=== PATIENT | female | born 1970 | race Caucasian/White ===

== ENCOUNTER 2017-02-03 16:09 | Inpatient (IN) | payer MEDICARE, MEDICAID ==
[~2017-02-03] VITALS: Ht 162.6 cm; Wt 123.0 kg
[~2017-02-03 16:09] MED LIST: CITA20TA9 PO; FAMO-136 PO; FERS325 PO; LEVO125T4 PO; METF500T4 PO; OLAN10TA3 PO; PROP10 PO; TRIH5TAB2 PO
[2017-02-03] MEDS ORDERED: FLUO-191 PO (16:24)
[2017-02-03] MEDS ORDERED: GABA-533 PO (16:24)
[2017-02-03] MEDS ORDERED: BUPR-93 PO (16:27)
[2017-02-03] MEDS ORDERED: MAGNESIUM HYDROXIDE SUSPENSION 30 ML UDCUP PO PRN (16:45)
[2017-02-03] MEDS ORDERED: MAG HYDROX/AL HYDROX/SIMETH ES 30 ML SUSPENSION UDCUP PO PRN (16:45)
[2017-02-03] MEDS ORDERED: PROMETHAZINE HCL 25 MG TABLET PO PRN (16:45)
[2017-02-03] MEDS ORDERED: HydrOXYzine PAMOATE 50 MG CAPSULE PO PRN (16:45)
[2017-02-03] MEDS ORDERED: OLANZapine 5 MG RAPDIS TABLET PO PRN (16:45)
[2017-02-03] MEDS ORDERED: ACETAMINOPHEN 325 MG TABLET PO PRN (16:45)
[2017-02-03] MEDS ORDERED: GuaiFENesin/D-METHORPHAN [SUGAR-FREE] 200-20MG/10 ML SYRUP UDCUP PO PRN (16:45)
[2017-02-03] MEDS ORDERED: LOPERAMIDE HCL 2 MG CAPSULE PO PRN (16:45)
[2017-02-03] MEDS ORDERED: TUBERCULIN, PURIFIED PROTEIN DERIVATIVE 5 TU/0.1 ML SYG ID ONE (16:45)
[2017-02-03 16:46] VITALS: BP 122/79
[2017-02-03] MEDS: TRIHEXYPHENIDYL HCL 5 MG TABLET PO SCH (17:35)
[2017-02-03] MEDS: PROPRANOLOL HCL 10 MG TABLET PO SCH (17:35)
[2017-02-03] MEDS: THIAMINE HCL 100 MG TABLET PO SCH (17:35)
[2017-02-03 17:37] VITALS: BP 121/78
[2017-02-03 17:37] LABS: GLUCOSE,POINT OF CARE 134 MG/DL (70-110)
[2017-02-03] MEDS: LORazepam 2 MG TABLET PO PRN (17:38)
[2017-02-03] MEDS: OLANZapine 5 MG RAPDIS TABLET PO SCH (20:23)
[2017-02-03] MEDS: ZOLPIDEM TARTRATE 10 MG TABLET PO PRN (20:59)
[2017-02-04 00:05] VITALS: BP 108/75
[2017-02-04] MEDS ORDERED: -PHARMACY VACCINE NOTE- MISC ONE ×2 (03:00)
[2017-02-04 04:50] VITALS: BP 129/78
[2017-02-04] MEDS: LORazepam 2 MG TABLET PO PRN ×3 (04:53→17:53)
[2017-02-04 06:32] LABS: GLUCOSE,POINT OF CARE 119 MG/DL (70-110)
[2017-02-04] MEDS: LEVOTHYROXINE SODIUM 125 MCG TABLET PO SCH (07:06)
[2017-02-04] MEDS: FERROUS SULFATE 325 MG EC TABLET PO SCH ×2 (07:06→16:13)
[2017-02-04 07:43] LABS: BASOPHILS % (AUTO) 0.9 % (0.0-2.0); EOSINOPHILS % (AUTO) 6.2 % (1.0-6.0); HEMATOCRIT 47.7 % (36-46); HEMOGLOBIN 15.7 g/dL (12.0-16.0); LYMPHOCYTES # (AUTO) 1.6 K/uL (1.0-4.8); LYMPHOCYTES % (AUTO) 26.3 % (22.0-44.0); MEAN CORPUSCULAR HEMOGLOBIN 32.2 pg (26.0-34.0); MEAN CORPUSCULAR HGB CONC 32.8 G/dL (31.0-37.0); MEAN CORPUSCULAR VOLUME 98 fL (80-100); MONOCYTES # (AUTO) 0.6 K/uL (0.1-1.0); MONOCYTES % (AUTO) 9.7 % (2.0-9.0); NEUTROPHILS # (AUTO) 3.5 K/uL (1.8-7.7); NEUTROPHILS % (AUTO) 56.9 % (40.0-70.0); PLATELET COUNT (AUTO) 231 K/uL (150-450); RED BLOOD CELL COUNT(AUTO) 4.88 MIL/uL (4.00-5.20); RED CELL DISTRIBUTION WIDTH 13.6 % (11.5-14.5); WHITE BLOOD COUNT (AUTO) 6.2 K/uL (4.5-11.0)
[2017-02-04 08:05] VITALS: BP 123/73
[2017-02-04 08:32] LABS: ALANINE AMINOTRANSFERASE 21 U/L (12-78); ALBUMIN 3.6 g/dL (3.4-5.0); ANION GAP 10 mmol/L (8-16); ASPARTATE AMINOTRANSFERASE 23 U/L (15-37); BILIRUBIN,TOTAL 0.5 mg/dL (0.1-1.0); CALCIUM, TOTAL 9.2 mg/dL (8.8-10.5); CARBON DIOXIDE 28 mmol/L (22-29); CHLORIDE 105 mmol/L (98-107); CHOL/HDL RATIO 3.5 (3.9-5.7); CREATININE 0.84 mg/dL (0.60-1.30); GLOMERULAR FILTR. RATE CALC > 60 mL/min (>60); POTASSIUM 5.9 mmol/L (3.5-5.1); SODIUM SERUM 143 mmol/L (136-145); THYROID STIMULATING HORMONE 2.79 uIU/mL (0.36-3.74); UREA NITROGEN, BLOOD 11 mg/dL (7-18)
[2017-02-04] MEDS: THIAMINE HCL 100 MG TABLET PO SCH ×2 (09:18→16:13)
[2017-02-04] MEDS: FAMOTIDINE 20 MG TABLET PO SCH ×2 (09:18→16:13)
[2017-02-04] MEDS: PROPRANOLOL HCL 10 MG TABLET PO SCH ×3 (09:18→16:13)
[2017-02-04] MEDS: MULTIVITAMINS WITH MINERALS, THERAPEUTIC TABLET PO SCH (09:18)
[2017-02-04] MEDS: TRIHEXYPHENIDYL HCL 5 MG TABLET PO SCH ×2 (09:18→16:13)
[2017-02-04] MEDS: NICOTINE 14 MG/24 HOUR PATCH TD SCH (09:19)
[2017-02-04] MEDS: CITALOPRAM HYDROBROMIDE 20 MG TABLET PO SCH (09:19)
[2017-02-04] MEDS: FOLIC ACID 1 MG TABLET PO SCH (09:19)
[2017-02-04] MEDS ORDERED: ACETAMINOPHEN 325 MG TABLET PO PRN (10:15)
[2017-02-04] MEDS ORDERED: IBUPROFEN 400 MG TABLET PO PRN (10:15)
[2017-02-04] MEDS ORDERED: SODIUM POLYSTYRENE SULFONATE 15 GM/60 ML SUSPENSION BOTTLE PO ONE (10:15)
[2017-02-04 13:20] VITALS: BP 111/70
[2017-02-04 16:06] VITALS: BP 117/79
[2017-02-04 16:40] VITALS: BP 115/80
[2017-02-04 16:41] LABS: GLUCOSE,POINT OF CARE 133 MG/DL (70-110)
[2017-02-04] MEDS ORDERED: FERROUS SULFATE 325 MG EC TABLET PO SCH (17:00)
[2017-02-04] MEDS: OLANZapine 5 MG RAPDIS TABLET PO SCH (20:05)
[2017-02-04] MEDS: ZOLPIDEM TARTRATE 10 MG TABLET PO PRN (20:52)
[2017-02-05 05:03] VITALS: BP 112/76
[2017-02-05] MEDS: MetFORMIN HCL 500 MG TABLET PO SCH (06:00)
[2017-02-05] MEDS: FERROUS SULFATE 325 MG EC TABLET PO SCH ×2 (06:00→16:03)
[2017-02-05] MEDS: LEVOTHYROXINE SODIUM 125 MCG TABLET PO SCH (06:00)
[2017-02-05] MEDS: LORazepam 2 MG TABLET PO PRN ×4 (06:22→22:05)
[2017-02-05 06:27] LABS: GLUCOSE,POINT OF CARE 86 MG/DL (70-110)
[2017-02-05 08:05] VITALS: BP 118/68
[2017-02-05 08:07] LABS: HEMOGLOBIN A1C 5.9 % (4.5-6.2)
[2017-02-05 08:30] LABS: POTASSIUM 5.4 mmol/L (3.5-5.1); THYROID STIMULATING HORMONE 2.66 uIU/mL (0.36-3.74)
[2017-02-05] MEDS ORDERED: SODIUM POLYSTYRENE SULFONATE 15 GM/60 ML SUSPENSION BOTTLE PO ONE (08:45)
[2017-02-05] MEDS: MULTIVITAMINS WITH MINERALS, THERAPEUTIC TABLET PO SCH (09:17)
[2017-02-05] MEDS: THIAMINE HCL 100 MG TABLET PO SCH ×2 (09:17→16:02)
[2017-02-05] MEDS: FOLIC ACID 1 MG TABLET PO SCH (09:17)
[2017-02-05] MEDS: FAMOTIDINE 20 MG TABLET PO SCH ×2 (09:17→16:02)
[2017-02-05] MEDS: TRIHEXYPHENIDYL HCL 5 MG TABLET PO SCH ×2 (09:17→16:02)
[2017-02-05] MEDS: CITALOPRAM HYDROBROMIDE 20 MG TABLET PO SCH (09:17)
[2017-02-05] MEDS: PROPRANOLOL HCL 10 MG TABLET PO SCH ×3 (09:17→16:43)
[2017-02-05] MEDS: NICOTINE 14 MG/24 HOUR PATCH TD SCH (09:18)
[2017-02-05 16:06] LABS: GLUCOSE,POINT OF CARE 80 MG/DL (70-110)
[2017-02-05 16:08] VITALS: BP 119/70
[2017-02-05] MEDS: OLANZapine 5 MG RAPDIS TABLET PO SCH (20:21)
[2017-02-05] MEDS: ZOLPIDEM TARTRATE 10 MG TABLET PO PRN (20:53)
[2017-02-05] MEDS ORDERED: FLUTICASONE PROPIONATE 50 MCG/SPRAY 16 GM NASAL SPRAY NASAL PRN (22:30)
[2017-02-06 03:30] VITALS: BP 115/67
[2017-02-06] MEDS: FERROUS SULFATE 325 MG EC TABLET PO SCH ×2 (06:11→16:18)
[2017-02-06] MEDS: LEVOTHYROXINE SODIUM 125 MCG TABLET PO SCH (06:11)
[2017-02-06] MEDS: MetFORMIN HCL 500 MG TABLET PO SCH (06:11)
[2017-02-06 06:17] LABS: GLUCOSE,POINT OF CARE 107 MG/DL (70-110)
[2017-02-06 08:22] VITALS: BP 112/69
[2017-02-06] MEDS: MULTIVITAMINS WITH MINERALS, THERAPEUTIC TABLET PO SCH (08:36)
[2017-02-06] MEDS: TRIHEXYPHENIDYL HCL 5 MG TABLET PO SCH ×2 (08:36→16:18)
[2017-02-06] MEDS: CITALOPRAM HYDROBROMIDE 20 MG TABLET PO SCH (08:36)
[2017-02-06] MEDS: FOLIC ACID 1 MG TABLET PO SCH (08:36)
[2017-02-06] MEDS: LORazepam 2 MG TABLET PO PRN ×2 (08:36→13:05)
[2017-02-06] MEDS: NICOTINE 14 MG/24 HOUR PATCH TD SCH (08:36)
[2017-02-06] MEDS: FAMOTIDINE 20 MG TABLET PO SCH ×2 (08:36→16:18)
[2017-02-06] MEDS: PROPRANOLOL HCL 10 MG TABLET PO SCH ×3 (08:36→16:18)
[2017-02-06] MEDS: THIAMINE HCL 100 MG TABLET PO SCH ×2 (08:36→16:18)
[2017-02-06] MEDS ORDERED: CITA20TA9 PO (13:09)
== END 2017-02-06 16:15 | disposition home or self-care (01) | DRG 885 ==
LOC: B2X 17:02 → EDSTATUS 17:05 → B2X 02-05 13:59
PROVIDERS: ADMIT Psychiatry & Neurology Psychiatry; ATTEND Psychiatry & Neurology Psychiatry
DX: F25.1 Schizoaffective disorder, depressive type (principal); Z68.42 Body mass index [BMI] 45.0-49.9, adult; E11.9 Type 2 diabetes mellitus without complications; E03.9 Hypothyroidism, unspecified; D64.9 Anemia, unspecified; E66.9 Obesity, unspecified; E78.5 Hyperlipidemia, unspecified; E87.5 Hyperkalemia; F99 Mental disorder, not otherwise specified; F17.210 Nicotine dependence, cigarettes, uncomplicated; I10 Essential (primary) hypertension; K21.9 Gastro-esophageal reflux disease without esophagitis; Z59.9 Problem related to housing and economic circumstances, unspecified; Z65.3 Problems related to other legal circumstances; Z82.49 Family history of ischemic heart disease and other diseases of the circulatory system; Z90.49 Acquired absence of other specified parts of digestive tract; Z83.3 Family history of diabetes mellitus; Z91.19 Patient's noncompliance with other medical treatment and regimen; Z91.5 Personal history of self-harm; Z98.84 Bariatric surgery status; Z98.890 Other specified postprocedural states; Z90.710 Acquired absence of both cervix and uterus; Z79.899 Other long term (current) drug therapy
CPT/HCPCS: 82962; 83036; 84132; 84439; 84443; 86592

== ENCOUNTER 2017-11-12 14:20 | Inpatient (IN) | payer MEDICARE, MEDICAID ==
[~2017-11-12] VITALS: Ht 162.6 cm; Wt 125.6 kg
[~2017-11-12 14:20] MED LIST changes: +FERR-89 PO; -FERS325 PO; -PROP10 PO; +PROP10TA73 PO
[2017-11-12 15:18] VITALS: BP 118/76
[2017-11-12] MEDS ORDERED: ZOLPIDEM TARTRATE 10 MG TABLET PO PRN (16:00)
[2017-11-12 16:20] VITALS: BP 122/76
[2017-11-12] MEDS: BuPROPion HCL XL 150 MG ER TABLET PO SCH (16:35)
[2017-11-12] MEDS: GABAPENTIN 400 MG CAPSULE PO SCH (16:35)
[2017-11-12] MEDS: LORazepam 2 MG TABLET PO PRN (16:35)
[2017-11-12] MEDS ORDERED: INFLUENZA VIRUS VACCINE QVS 2017-18 (3YR+)/PF 60 MCG/0.5 ML SYRINGE IM ONE (16:45)
[2017-11-12 17:08] LABS: GLUCOMETER DEV NAME(LOC) BV2S; GLUCOSE,POINT OF CARE 92 MG/DL (70-110)
[2017-11-12] MEDS: OLANZapine 7.5 MG TABLET PO SCH (20:16)
[2017-11-13 00:58] VITALS: BP 132/71
[2017-11-13] MEDS: LEVOTHYROXINE SODIUM 125 MCG TABLET PO SCH (06:37)
[2017-11-13] MEDS: FERROUS SULFATE 325 MG EC TABLET PO SCH ×2 (06:50→16:40)
[2017-11-13] MEDS: MetFORMIN HCL 500 MG TABLET PO SCH (06:50)
[2017-11-13] MEDS: LORazepam 2 MG TABLET PO PRN ×2 (06:50→11:11)
[2017-11-13] MEDS: GABAPENTIN 400 MG CAPSULE PO SCH ×3 (08:07→16:41)
[2017-11-13] MEDS: FAMOTIDINE 20 MG TABLET PO SCH ×2 (08:07→16:40)
[2017-11-13] MEDS: BuPROPion HCL XL 150 MG ER TABLET PO SCH (08:07)
[2017-11-13] MEDS: FLUoxetine HCL 20 MG CAPSULE PO SCH (08:07)
[2017-11-13 08:18] LABS: EOSINOPHILS % (AUTO) 7.1 % (1.0-6.0); HEMATOCRIT 42.3 % (36-46); HEMOGLOBIN 14.6 g/dL (12.0-16.0); LYMPHOCYTES # (AUTO) 2.1 K/uL (1.0-4.8); LYMPHOCYTES % (AUTO) 37.7 % (22.0-44.0); MEAN CORPUSCULAR HEMOGLOBIN 33.6 pg (26.0-34.0); MEAN CORPUSCULAR HGB CONC 34.6 G/dL (31.0-37.0); MEAN CORPUSCULAR VOLUME 97 fL (80-100); MONOCYTES # (AUTO) 0.5 K/uL (0.1-1.0); MONOCYTES % (AUTO) 8.4 % (2.0-9.0); NEUTROPHILS # (AUTO) 2.5 K/uL (1.8-7.7); NEUTROPHILS % (AUTO) 45.8 % (40.0-70.0); PLATELET COUNT (AUTO) 205 K/uL (150-450); RED BLOOD CELL COUNT(AUTO) 4.35 MIL/uL (4.00-5.20); RED CELL DISTRIBUTION WIDTH 13.5 % (11.5-14.5)
[2017-11-13 08:42] VITALS: BP 108/61
[2017-11-13 09:02] LABS: HEMOGLOBIN A1C 6.1 % (4.5-6.2)
[2017-11-13 09:27] LABS: ALANINE AMINOTRANSFERASE 27 U/L (12-78); ALBUMIN 3.1 g/dL (3.4-5.0); ALKALINE PHOSPHATASE 75 U/L (46-116); ANION GAP 6 mmol/L (8-16); ASPARTATE AMINOTRANSFERASE 24 U/L (15-37); BILIRUBIN,TOTAL 0.6 mg/dL (0.1-1.0); CALCIUM, TOTAL 8.6 mg/dL (8.8-10.5); CARBON DIOXIDE 28 mmol/L (22-29); CHLORIDE 105 mmol/L (98-107); CHOL/HDL RATIO 3.5 (3.9-5.7); CHOLESTEROL 184 mg/dL (131-200); FREE T4 (FREE THYROXINE) 0.85 ng/dL (0.76-1.46); GLOMERULAR FILTR. RATE CALC > 60 mL/min (>60); GLUCOSE,RANDOM 100 mg/dL (70-110); HDL CHOLESTEROL 53 mg/dL (40-60); LDL CHOL (CALC.) 111 mg/dL (0-130); SODIUM SERUM 139 mmol/L (136-145); THYROID STIMULATING HORMONE 9.91 uIU/mL (0.36-3.74); TOTAL PROTEIN, SERUM 6.5 g/dL (6.4-8.2); TRIGLYCERIDES 100 mg/dL (15-150); UREA NITROGEN, BLOOD 11 mg/dL (7-18)
[2017-11-13] MEDS ORDERED: GABA-529 PO (11:14)
[2017-11-13] MEDS ORDERED: FLUO-191 PO (11:14)
[2017-11-13] MEDS ORDERED: BUPR-93 PO (11:14)
[2017-11-13 16:29] VITALS: BP 117/67
[2017-11-13] MEDS: OLANZapine 7.5 MG TABLET PO SCH (20:37)
[2017-11-14] MEDS: FERROUS SULFATE 325 MG EC TABLET PO SCH ×2 (06:26→16:36)
[2017-11-14] MEDS: MetFORMIN HCL 500 MG TABLET PO SCH (06:26)
[2017-11-14] MEDS: LEVOTHYROXINE SODIUM 125 MCG TABLET PO SCH (06:26)
[2017-11-14 06:30] VITALS: BP 109/80
[2017-11-14] MEDS: LORazepam 2 MG TABLET PO PRN ×2 (06:31→12:06)
[2017-11-14] MEDS: GABAPENTIN 400 MG CAPSULE PO SCH ×3 (08:14→16:36)
[2017-11-14] MEDS: FLUoxetine HCL 20 MG CAPSULE PO SCH (08:14)
[2017-11-14] MEDS: FAMOTIDINE 20 MG TABLET PO SCH ×2 (08:15→16:36)
[2017-11-14] MEDS: BuPROPion HCL XL 150 MG ER TABLET PO SCH (08:15)
[2017-11-14 08:28] VITALS: BP 116/73
[2017-11-14 16:00] VITALS: BP 115/57
[2017-11-14] MEDS: OLANZapine 7.5 MG TABLET PO SCH (20:36)
[2017-11-15 05:46] VITALS: BP 136/77
[2017-11-15] MEDS: FERROUS SULFATE 325 MG EC TABLET PO SCH ×2 (06:25→16:33)
[2017-11-15] MEDS: MetFORMIN HCL 500 MG TABLET PO SCH (06:25)
[2017-11-15] MEDS: LEVOTHYROXINE SODIUM 125 MCG TABLET PO SCH (06:25)
[2017-11-15] MEDS ORDERED: ACETAMINOPHEN 500 MG TABLET PO PRN (07:45)
[2017-11-15] MEDS ORDERED: IBUPROFEN 600 MG TABLET PO PRN (07:45)
[2017-11-15] MEDS: GABAPENTIN 400 MG CAPSULE PO SCH ×2 (08:20→12:48)
[2017-11-15] MEDS: FAMOTIDINE 20 MG TABLET PO SCH ×2 (08:20→16:33)
[2017-11-15] MEDS: BuPROPion HCL XL 150 MG ER TABLET PO SCH (08:20)
[2017-11-15] MEDS: FLUoxetine HCL 20 MG CAPSULE PO SCH (08:20)
[2017-11-15 08:45] VITALS: BP 123/77
[2017-11-15] MEDS: LORazepam 2 MG TABLET PO PRN (09:00)
[2017-11-15] MEDS: GABAPENTIN 300 MG CAPSULE PO SCH (16:33)
[2017-11-15 16:43] VITALS: BP 120/72
[2017-11-15] MEDS: OLANZapine 7.5 MG TABLET PO SCH (20:36)
[2017-11-16 05:17] VITALS: BP 108/62
[2017-11-16] MEDS ORDERED: LEVOTHYROXINE SODIUM 150 MCG TABLET PO SCH (06:30)
[2017-11-16] MEDS: MetFORMIN HCL 500 MG TABLET PO SCH (07:03)
[2017-11-16] MEDS: FERROUS SULFATE 325 MG EC TABLET PO SCH (07:03)
[2017-11-16 07:25] VITALS: BP 120/81
[2017-11-16 08:09] VITALS: BP 121/84
[2017-11-16] MEDS: FAMOTIDINE 20 MG TABLET PO SCH (08:13)
[2017-11-16] MEDS: BuPROPion HCL XL 150 MG ER TABLET PO SCH (08:13)
[2017-11-16] MEDS: GABAPENTIN 300 MG CAPSULE PO SCH ×2 (08:13→12:23)
[2017-11-16] MEDS ORDERED: FLUoxetine HCL 20 MG CAPSULE PO SCH (09:00)
[2017-11-16] MEDS ORDERED: MAGNESIUM HYDROXIDE SUSPENSION 30 ML UDCUP PO PRN (09:15)
[2017-11-16] MEDS ORDERED: LACTULOSE 20 GM/30 ML SOLUTION UDCUP PO PRN (09:15)
[2017-11-16] MEDS ORDERED: BISACODYL 5 MG EC TABLET PO PRN (09:15)
[2017-11-16] MEDS ORDERED: DOCU250C91 PO (11:33)
[2017-11-16] MEDS ORDERED: DOCUSATE SODIUM 100 MG CAPSULE PO SCH (17:00)
== END 2017-11-16 14:10 | disposition home or self-care (01) | DRG 885 ==
LOC: B2X 16:00
PROVIDERS: ADMIT Psychiatry & Neurology Psychiatry; ATTEND Psychiatry & Neurology Psychiatry
PROC: 3E0234Z Introduction of Serum, Toxoid and Vaccine into Muscle, Percutaneous Approach (ICD-10-PCS; principal; 2017-11-12)
DX: F33.2 Major depressive disorder, recurrent severe without psychotic features (principal); R45.851 Suicidal ideations; E11.9 Type 2 diabetes mellitus without complications; E03.9 Hypothyroidism, unspecified; F12.90 Cannabis use, unspecified, uncomplicated; D64.9 Anemia, unspecified; F41.9 Anxiety disorder, unspecified; K21.9 Gastro-esophageal reflux disease without esophagitis; K59.00 Constipation, unspecified; Z82.49 Family history of ischemic heart disease and other diseases of the circulatory system; Z83.3 Family history of diabetes mellitus; Z87.891 Personal history of nicotine dependence; Z90.710 Acquired absence of both cervix and uterus; Z91.5 Personal history of self-harm; Z98.84 Bariatric surgery status; Z23 Encounter for immunization
CPT/HCPCS: 82962; 83036; 84439; 84443; 90471

== ENCOUNTER 2018-05-28 20:05 | Emergency (ER) | payer MEDICARE, OTHER ==
[~2018-05-28] VITALS: Ht 190.5 cm; Wt 70.5 kg
[~2018-05-28 20:05] MED LIST changes: +BUPR-93 PO; -CITA20TA9 PO; +DOCU250C91 PO; +FLUO-191 PO; +GABA-529 PO; -METF500T4 PO; +METF500T6 PO; -PROP10TA73 PO; -TRIH5TAB2 PO
[2018-05-28] MEDS ORDERED: OLAN7.5T2 PO (20:23)
[2018-05-28] MEDS ORDERED: LEVO150 PO (20:23)
[2018-05-28 20:28] LABS: GLUCOSE,POINT OF CARE 89 MG/DL (70-110)
[2018-05-28 20:48] LABS: ANION GAP 5 mmol/L (8-16); CALCIUM, TOTAL 8.8 mg/dL (8.8-10.5); CARBON DIOXIDE 29 mmol/L (22-29); CHLORIDE 107 mmol/L (98-107); GLOMERULAR FILTR. RATE CALC > 60 mL/min (>60); GLUCOSE,RANDOM 96 mg/dL (70-110); POTASSIUM 4.2 mmol/L (3.5-5.1); SODIUM SERUM 141 mmol/L (136-145); UREA NITROGEN, BLOOD 11 mg/dL (7-18)
[2018-05-28 20:54] LABS: ALANINE AMINOTRANSFERASE 21 U/L (12-78); ALBUMIN 3.5 g/dL (3.4-5.0); ALKALINE PHOSPHATASE 67 U/L (46-116); ASPARTATE AMINOTRANSFERASE 20 U/L (15-37); BILIRUBIN,TOTAL 0.3 mg/dL (0.1-1.0); TOTAL PROTEIN, SERUM 6.9 g/dL (6.4-8.2)
[2018-05-28 20:59] LABS: EOSINOPHILS % (AUTO) 5.6 % (1.0-6.0); HEMATOCRIT 43.4 % (36-46); HEMOGLOBIN 14.8 g/dL (12.0-16.0); LYMPHOCYTES % (AUTO) 44.1 % (22.0-44.0); MEAN CORPUSCULAR HEMOGLOBIN 32.8 pg (26.0-34.0); MEAN CORPUSCULAR HGB CONC 34.1 G/dL (31.0-37.0); MEAN CORPUSCULAR VOLUME 96 fL (80-100); MONOCYTES # (AUTO) 0.6 K/uL (0.1-1.0); MONOCYTES % (AUTO) 8.4 % (2.0-9.0); NEUTROPHILS # (AUTO) 2.8 K/uL (1.8-7.7); NEUTROPHILS % (AUTO) 40.9 % (40.0-70.0); PLATELET COUNT (AUTO) 192 K/uL (150-450); RED BLOOD CELL COUNT(AUTO) 4.52 MIL/uL (4.00-5.20); RED CELL DISTRIBUTION WIDTH 12.8 % (11.5-14.5)
[2018-05-28] MEDS ORDERED: LORazepam 1 MG TABLET PO ONE (21:30)
[2018-05-28 21:45] VITALS: BP 130/74
== END 2018-05-28 22:06 | disposition home or self-care (01) ==
LOC: EMS 20:06
DX: F41.9 Anxiety disorder, unspecified (principal); F20.9 Schizophrenia, unspecified
CPT/HCPCS: 36415; 80053; 82962; 85025; 99284; G0480

== ENCOUNTER → 2019-06-11 | Outpatient (CLI) | payer OTHER ==
[~2019-06-11] MED LIST changes: -DOCU250C91 PO; -FAMO-136 PO; -FERR-89 PO; -GABA-529 PO; -LEVO125T4 PO; +LEVO150 PO; -METF500T6 PO; -OLAN10TA3 PO; +OLAN7.5T2 PO
[2019-06-12 12:37] LABS: RUBEOLA (MEASLES) IGG 96.6 AU/mL (Immune >29.9)
== END | disposition home or self-care (01) ==
LOC: EMPHLTH 12:35
PROVIDERS: ATTEND Internal Medicine
DX: Z02.1 Encounter for pre-employment examination (principal)
CPT/HCPCS: 86706; 86735; 86762; 86765; 86787